=== PATIENT | female | born 2000 | race Two or more races ===

== ENCOUNTER 2022-06-30 12:48 | Emergency (ER) | payer MEDICAID ==
[~2022-06-30] VITALS: Ht 152.4 cm; Wt 46.0 kg
[2022-06-30 12:56] VITALS: BP 112/69
== END 2022-06-30 15:00 | disposition left against medical advice (07) ==
LOC: ER 12:48
DX: Z32.00 Encounter for pregnancy test, result unknown (principal); R10.9 Unspecified abdominal pain; Z53.21 Procedure and treatment not carried out due to patient leaving prior to being seen by health care provider
CPT/HCPCS: 99281

== ENCOUNTER 2023-01-20 11:29 | Emergency (ER) | payer MEDICAID ==
[~2023-01-20] VITALS: Ht 154.9 cm; Wt 45.0 kg
[2023-01-20 11:39] VITALS: O2SAT 100
[2023-01-20 12:14] LABS: CLARITY URINE CLEAR (CLEAR); COLOR URINE YELLOW (YELLOW); GLUCOSE URINE NEGATIVE (NEGATIVE); KETONES URINE NEGATIVE (NEGATIVE); LEUKOCYTE ESTERASE URINE 2+ (NEGATIVE); NITRITE URINE NEGATIVE (NEGATIVE); OCCULT BLOOD URINE NEGATIVE (NEGATIVE); PH URINE 6.5 (4.5-8.0); PROTEIN URINE NEGATIVE (NEGATIVE); SPECIFIC GRAVITY URINE 1.015 (1.005-1.030); UROBILINOGEN URINE 0.2 E.U./dL (0.2-1.0)
[2023-01-20 12:18] LABS: RBC URINE 0-2 /hpf (0-2); SQUAMOUS EPITHELIAL CELL URINE 1+ /lpf (RARE/1+); YEAST URINE NONE SEEN
[2023-01-20 12:23] LABS: BASOPHILS % 0.3 % (0.0-2.0); EOSINOPHILS % 0.4 % (0.0-5.0); HEMATOCRIT. 32.8 % (36.0-48.0); HEMOGLOBIN. 10.9 g/dL (12.0-16.0); LYMPHOCYTES % 15.2 % (20.0-50.0); MEAN CORPUSCULAR HGB CONC 33.4 g/dL (31.0-37.0); MEAN CORPUSCULAR VOLUME 83.9 fL (81.0-99.0); MEAN PLATELET VOLUME 8.1 fl (7.4-10.4); MONOCYTES % 5.5 % (2.0-8.0); NEUTROPHILS % 78.6 % (40.0-76.0); PLATELET 257 x1000/uL (130-400); RED BLOOD CELL COUNT 3.91 mill/uL (4.2-5.4); RED CELL DISTRIBUTION WIDTH 18.2 % (11.6-14.6); WHITE BLOOD COUNT 7.3 x1000/uL (4.5-11.0)
[2023-01-20 12:30] LABS: CHLORIDE 106 mEq/L (98-107); INDEX HEMOLYSI 1 (1-3); INDEX ICTERIC 1 (1-4); INDEX LIPEMIC 1 (1-3); POTASSIUM 3.6 mEq/L (3.5-5.1); SODIUM 136 mEq/L (136-145)
[2023-01-20 12:39] LABS: BACTERIA URINE FEW
[2023-01-20 12:42] LABS: ALANINE AMINOTRANSFERASE 17 IU/L (13-61); ALBUMIN 3.4 g/dL (3.4-5.0); ASPARTATE AMINOTRANSFERASE 10 IU/L (15-37); BILIRUBIN TOTAL 0.5 mg/dL (0.1-1.0); CALCIUM 8.7 mg/dL (8.5-10.1); CARBON DIOXIDE 23 mEq/L (21-32); CREATININE 0.5 mg/dL (0.6-1.3); GLUCOSE 87 mg/dL (70-105); HCG SCREEN POSITIVE; PROTEIN TOTAL 7.4 g/dL (6.0-8.3); UREA NITROGEN BLOOD 5 mg/dL (7-21)
[2023-01-20] MEDS ORDERED: NITR-87 MT (14:32)
[2023-01-20 14:56] VITALS: BP 102/70; PULSE 88; RESP 18; TEMP 98.4
== END 2023-01-20 14:58 | disposition home or self-care (01) ==
LOC: ER 11:50
DX: O23.12 Infections of bladder in pregnancy, second trimester (principal); Z3A.14 14 weeks gestation of pregnancy
CPT/HCPCS: 36415; 76801; 80053; 81003; 81025; 84702; 84703; 85025; 99284

== ENCOUNTER 2023-03-21 11:14 | Emergency (ER) | payer BC, MEDICAID ==
[~2023-03-21] VITALS: Ht 154.9 cm; Wt 43.5 kg
[~2023-03-21 11:14] MED LIST: NITR-87 MT
[2023-03-21 11:22] VITALS: O2SAT 100
[2023-03-21] MEDS ORDERED: ACETAMINOPHEN 325MG TABLET PO ONE (11:45)
[2023-03-21] MEDS ORDERED: LACTATED RINGERS 1,000 ML IV SCH (11:45)
[2023-03-21 12:05] LABS: BASOPHILS % 0.5 % (0.0-2.0); EOSINOPHILS % 0.2 % (0.0-5.0); HEMOGLOBIN. 9.8 g/dL (12.0-16.0); LYMPHOCYTES % 17.3 % (20.0-50.0); MEAN CORPUSCULAR HEMOGLOBIN 27.7 pg (28.0-32.0); MEAN CORPUSCULAR HGB CONC 33.9 g/dL (31.0-37.0); MEAN CORPUSCULAR VOLUME 81.6 fL (81.0-99.0); MONOCYTES % 4.4 % (2.0-8.0); NEUTROPHILS % 77.6 % (40.0-76.0); PLATELET 217 x1000/uL (130-400); RED BLOOD CELL COUNT 3.56 mill/uL (4.2-5.4); RED CELL DISTRIBUTION WIDTH 14.2 % (11.6-14.6); WHITE BLOOD COUNT 3.9 x1000/uL (4.5-11.0)
[2023-03-21 12:40] LABS: CLARITY URINE CLOUDY (CLEAR); COLOR URINE YELLOW (YELLOW); GLUCOSE URINE NEGATIVE (NEGATIVE); KETONES URINE NEGATIVE (NEGATIVE); LEUKOCYTE ESTERASE URINE 2+ (NEGATIVE); NITRITE URINE NEGATIVE (NEGATIVE); OCCULT BLOOD URINE NEGATIVE (NEGATIVE); PH URINE 5.5 (4.5-8.0); PROTEIN URINE TRACE (NEGATIVE); SPECIFIC GRAVITY URINE 1.018 (1.005-1.030); UROBILINOGEN URINE 0.2 E.U./dL (0.2-1.0)
[2023-03-21 12:50] LABS: ALANINE AMINOTRANSFERASE 14 IU/L (10-49); ASPARTATE AMINOTRANSFERASE 25 IU/L (<34); BILIRUBIN TOTAL 0.4 mg/dL (0.1-1.0); CALCIUM 8.3 mg/dL (8.7-10.4); CARBON DIOXIDE 26 mEq/L (21-32); CHLORIDE 104 mEq/L (98-107); CREATININE 0.5 mg/dL (0.6-1.0); GLUCOSE 85 mg/dL (70-105); POTASSIUM 3.2 mEq/L (3.5-5.1); SODIUM 138 mEq/L (136-145)
[2023-03-21 12:55] LABS: UREA NITROGEN BLOOD < 5 mg/dL (9-23)
[2023-03-21 13:04] LABS: BACTERIA URINE 2+; SQUAMOUS EPITHELIAL CELL URINE 2+ /lpf (RARE/1+); YEAST URINE NONE SEEN
[2023-03-21 14:07] VITALS: BP 129/65; PULSE 95; RESP 16; TEMP 98.4
[2023-03-21] MEDS ORDERED: CEPH500C2 MT (14:58)
== END 2023-03-21 13:50 | disposition left against medical advice (07) ==
LOC: ER 11:14
DX: O9A.22 Injury, poisoning and certain other consequences of external causes complicating childbirth (principal); T65.91XA Toxic effect of unspecified substance, accidental (unintentional), initial encounter; R10.2 Pelvic and perineal pain; N39.0 Urinary tract infection, site not specified; R10.30 Lower abdominal pain, unspecified; Z98.890 Other specified postprocedural states; Z3A.22 22 weeks gestation of pregnancy
CPT/HCPCS: 80053; 81003; 84702; 83690; 85025; 36415; 76815; 76857; 96360; 99284; Z7610